=== PATIENT | female | born 1995 | race Caucasian/White ===

== ENCOUNTER 2023-06-27 11:10 | Emergency (ER) | payer MEDICAID, SELFPAY ==
[2023-06-27 11:24] VITALS: BP 115/85; PULSE 86; RESP 18; TEMP 36.4; O2SAT 99; BMI 28.2
--- NOTE | 2023-06-27 11:43 | ED.GENADUL1 ---
HPI - General Adult General Chief complaint: Recheck/Abnormal Lab/Rx Stated complaint: MISSED MENSES/POSS. PREG Time Seen by Provider: 06/27/23 11:27 Source: patient Mode of arrival: walk-in Limitations: no limitations History of Present Illness HPI narrative: Patient is a 27-year-old female who is requesting a test blood work. Patient states that she's taken 5 hhaz-nfk-ykzippq tests and they have been negative. Patient is a . Patient states she is approximately 15 days late from her menses. Patient states that she feels like her breasts are sore, she has morning sickness, and some mild pressure to the pelvic area. Patient states that she has no fever, chills, chest pain or shortness of breath. Patient is not taking vitamins. Patient was not trying to get at this time. Patient's child is also a patient in the Emergency Room at this time for sore throat. Patient has no urinary frequency or urgency or burning. Patient has no diarrhea constipation. Patient has no other acute complaints. Patient looks well, no vaginal bleeding, no pelvic complaints, no indication for testing at this time from the emergency room . All systems are negative except as noted/marked. All systems reviewed and otherwise negative. . Nurses note and vital signs reviewed and patient is not hypoxic. General: The patient appears well and in no apparent distress. Patient is resting comfortably standing in room. Patient is not toxic, lethargic, or listless Skin: Warm, dry, no pallor noted. There is no rash noted. No petechiae, purpura. Head: Normocephalic, atraumatic Eye: Normal conjunctiva, no drainage, EOMI. PERRL Ears, Nose, Mouth, and Throat: oral mucosa is moist. Nares patent. Mouth without vesicles. poor dentition. Cardiovascular: Regular Rate and Rhythm, Respiratory: Patient is in no distress, Back: non-tender, no CVA tenderness bilaterally GI: soft, no tenderness Musculoskeletal: Patient has full range of motion of all of the extremities, no motor, sensory, or focal neurological deficits Neurological: A&O x3, normal speech Psychiatric: Cooperative Related Data Allergies Allergy/AdvReac Type Severity Reaction Status Date / Time No Known Drug Allergies Allergy Verified 06/27/23 11:23 Exam Constitutional Vital Signs, click to edit/add: Last Vital Signs Temp 97.6 F 06/27/23 11:24 Pulse 86 06/27/23 11:24 Resp 18 06/27/23 11:24 BP 115/85 06/27/23 11:24 Pulse Ox 99 06/27/23 11:24 Course Vital Signs Vital signs: Vital Signs Temperature 97.6 F 06/27/23 11:24 Pulse Rate 86 06/27/23 11:24 Respiratory Rate 18 06/27/23 11:24 Blood Pressure 115/85 06/27/23 11:24 Pulse Oximetry 99 06/27/23 11:24 Temperature 97.6 F 06/27/23 11:24 Pulse Rate 86 06/27/23 11:24 Respiratory Rate 18 06/27/23 11:24 Blood Pressure 115/85 06/27/23 11:24 Pulse Oximetry 99 06/27/23 11:24 Medical Decision Making MDM Narrative Medical decision making narrative: Patient was referred to Dr. Painting for CREDIT OPERATIONS SPECIALIST care, patient states that she moved locally from [place]. Patient was recommended to start taking vitamins. Patient was educated she could follow-up with her PCP and she could order a outpatient blood test if needed. Patient was educated on the appropriate use of the emergency room and when it isn't emergent need to test for with blood work or not. Patient has been using tksv-orc-dfaaiod tests are negative. Patient follow-up with fatuma PCP for additional testing as indicated, or establish care with local CREDIT OPERATIONS SPECIALIST. She has no pelvic pain, no vaginal bleeding, no urinary or complaints or concerns. No indication for any testing at this time. Patient's chief concern was to get a test that would say yes or now she is . Patient understands is no emergent need for blood test at this time. Discharge Plan Discharge Chief Complaint: Recheck/Abnormal Lab/Rx Clinical Impression: Concern about unplanned without diagnosis Patient Disposition: Home, Self-Care Condition: Fair Instructions: Abdominal Pain in (ED) Additional Instructions: Patient was given educational information on for educational purposes only, I'm not diagnosing patient has being . Start taking vitamins. CREDIT OPERATIONS SPECIALIST has been referred to, your PCP can order a outpatient lab tests for if indicated. Stand Alone Forms: Portal Instructions Referrals: Physician,Non-Staff, [Primary Care Provider] - 1 week Crystal Painting MD [Physician] - 1 week
== END 2023-06-27 11:48 | disposition home or self-care (01) ==
PROVIDERS: Emergency Provider Emergency Medicine
DX: N91.2 Amenorrhea, unspecified (principal)
CPT/HCPCS: 99281

== ENCOUNTER 2024-07-12 12:45 | Emergency (ER) | payer MEDICAID, SELFPAY ==
[2024-07-12 12:49] VITALS: BP 119/77; PULSE 101; TEMP 36.5; O2SAT 100; BMI 26.5
== END 2024-07-12 14:08 | disposition left against medical advice (07) ==
LOC: ER 12:54
PROVIDERS: Emergency Provider Student in an Organized Health Care Education/Training Program
DX: Z53.21 Procedure and treatment not carried out due to patient leaving prior to being seen by health care provider (principal)

== ENCOUNTER 2025-05-30 16:06 | Emergency (ER) | payer MEDICAID, SELFPAY ==
--- OUTSIDE RECORDS SUMMARY | 2024-06-29 06:45 | XMS_ITS ---
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 [place] [address] 06/29/2024 Arpit Wolf Plan Of Treatment No Information Progress Notes * Joan SIDHUDOB:1995 ([age] yo F)Acc No.[id number]:06/29/2024 UNLOCKED PROGRESS NOTE New Patient Patient: Joan ALMENDAREZ Provider: Salma Wolf MD (TTC) :1995 A ge:28 Y S ex:Female Date:06/29/2024 [facility] [facility] [id number] Pcp:Unknown or None Subjective: * Chief Complaints: * 1 . 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 * Medical History: Objective: * Vitals: Assessment: Plan: * Treatment: * * Electronic signature of Arpit Wolf MD, [id number] on 05/30/2025 at 06:26 PM EDT Sign off status: Pending Visit Status: N /S N/C (No Show/No Charge) * Provider: Salma Wolf MD (TTC) Date: 1 Generated for Printi ng/Faxing/eTransmitting on: 0 05/30/2025 06:26 PM EDT
[2025-05-30 16:37] VITALS: BP 115/68; PULSE 77; TEMP 36.9; O2SAT 98; BMI 26.5
--- OUTSIDE RECORDS SUMMARY | 2025-05-30 18:27 | XMS_ITS | Clinical Summary ---
Author Organization [employer] s tem Address [id number] [place] [address] Care Team Providers Care New Client Banking Services Clerk Name Role Phone No Pcp, No Pcp Primary Care Provider Unavailabl e Allergies Active Allergy Reactions Criticality Noted Date Comments Penicillins Rash Low 01/24/2019 Medications BROMELAINS ORAL Take 2 tablets by mouth in the morning and 2 tablets before bedtime. Active ascorbic acid, vitamin C, (VITAMIN C) 1000 mg tablet Take 1 tablet (1,000 mg total) by mouth in the morning. Active Active Problems No known active problems Social History Tobacco Use Types Packs/Day Years Used Date Smoking Tobacco: Never Smokeless Tobacco: Never Tobacco Cessation:Counseling Given: Not Answered Alcohol Use Standard Drinks/Week Comments Yes 0 (1 standard drink = 0.6 oz pur e alcohol) Rarely Comments Unknown Sex and Gender Information Value Date Recorded Sex Assigned at Not on file Legal Sex Female 11:24 AM EDT Gender Identity Not on file Sexual Orientation Not on file Last Filed Vital Signs Vital Sign Reading Time Taken Comments Blood Pressure 120/68 11/29/2024 12:30 PM EDT Pulse 78 11/29/2024 12:30 PM EDT Temperature 36.4 C (97.5 F) 11/29/2024 12:30 PM EDT Respiratory Rate 12 11/29/2024 12:30 PM EDT Oxygen Saturation 96% 11/29/2024 12:30 PM EDT Inhaled Oxygen Concentration - - Weight 67.5 kg (148 lb 13 oz) 11/29/2024 9:15 AM EDT Height 157.5 cm (5' 2 ) 11/29/2024 9:15 AM EDT Body Mass Index 27.22 11/29/2024 9:15 AM EDT Plan of Treatment Health Maintenance Due Date Last Done Comments Depression Screening 2008 Adult BMI Follow Up Plan 2014 DTaP,Tdap and Td Vaccines (1 - Tdap) 2015 Pap Smear 2017 Influenza Vaccine 05/09/2025 Adult BMI Screening 11/29/2025 11/29/2024 Tobacco Screening 11/29/2025 11/29/2024 Medical Devices Implanted Type Area Yarn Tester Device Identifier Shelf Expiration Date Model / Serial / Lot Implant Brst 495cc Xfull [facility] [id number] - [id number] - [id number] Implanted:Qty : 1 on 11/29/2024 by Jean Carlos Lizarraga MD at [facility] Other Implant Left: Breast [employer] 01/10/2029 SRX-495 / [id number] / [id number] Description:BROUGHT IN BY 'S OFFICE Implant Brst 495cc Xfull [facility] [id number] - [id number] - [id number] Implanted:Qty : 1 on 11/29/2024 by Jean Carlos Lizarraga MD at [facility] Other Implant Right: Breast [employer] [id number] 01/10/2029 SRX-495 / [id number] / [id number] Description:BROUGHT IN BY 'S OFFICE Care Teams New Client Banking Services Clerk Relationship Specialty Start Date End Date No Pcp, [place] [address] PCP - General Family Medicine 11/29/24
--- OUTSIDE RECORDS SUMMARY | 2025-05-30 18:27 | XMS_ITS | Patient Health Record ---
Author Organization [facility] in [place] Address [address] [place] [address] Care Team Providers Care Director Operations Name Role Phone None, Unknown or Primary Care Provider Unavailab le Provider, Lab Unavailable [phone] Arpit Wolf Unavailable [phone] Results Component Value Reference Range Notes HEMATOCRIT (HCT) (Not yet re viewed by provider) Interpretation: Performing Lab:[facility], [address] [place], [place], [id number] Notes/Report: 1L FACILITY: [facility] [id number] HEMATOCRIT 41.7 (37.0 - 47.0) % HEMOGLOBIN (HGB) (Not yet re viewed by provider) Interpretation: Performing Lab:[facility], [address] [place], [place], [id number] Notes/Report: 1L FACILITY: [facility] [id number] HEMOGLOBIN 13.1 (12.0 - 16.0) G/DL Reason For Referral No Information Encounters Encounter Location Date Provider Diagnosis [facility] [place] [address] [place] [address] 11/11/2024 Lab Provider Plan Of Treatment Pending Test Test Name Order Date HEMATOCRIT (HCT) 11/11/2024 HEMOGLOBIN (HGB) 11/11/2024 Insurance Providers Payer Name Payer Address Payer Phone Subscriber Number Group Number Insured Name Patient Relationship to Insured Coverage Start Date Coverage End Date [employer] [place] [employer] [address] [address] [place] [phone] [id number] Joan Sidhu Self - patient is the insured
== END 2025-05-30 17:03 | disposition left against medical advice (07) ==
LOC: ER 18:25
PROVIDERS: Emergency Provider Emergency Medicine
DX: Z53.21 Procedure and treatment not carried out due to patient leaving prior to being seen by health care provider (principal)
CPT/HCPCS: 99281